=== PATIENT | male | born 1975 | race Caucasian/White ===

== ENCOUNTER 2016-09-28 16:39 | Emergency (ER) | payer OTHER ==
[~2016-09-28] VITALS: Ht 172.7 cm; Wt 119.5 kg
[2016-09-28 16:54] VITALS: BP 141/97; TEMP 36.7; Ht 172.7 cm; Wt 119.5 kg
--- NOTE | 2016-09-28 17:50 | DIAGNOSTIC IMAGING REPORT ---
LEFT THIRD FINGER 3 VIEWS HISTORY: puncture wound from drill left third finger COMPARISON: None. FINDINGS: There is no fracture or dislocation. Soft tissue swelling within the mid aspect of the left middle finger with a small volar density suggesting a soft tissue laceration. IMPRESSION: Soft tissue injury within the left middle finger. No fractures. Electronically signed by: David Perez M.D. 09/28/2016 5:49 PM Dictated Date/Time: 09/28/2016 5:46 PM
--- NOTE | 2016-09-28 17:53 | EMERGENCY ROOM VISIT NOTE ---
ED Visit Note First contact with patient: 17:00 CHIEF COMPLAINT: Puncture wound of the left third finger HISTORY OF PRESENT ILLNESS: This 40-year-old male presents the ER with chief complaint that he drilled into his left third finger with a drill bit. The patient states that it bled a lot but it has stopped. The patient denies any numbness and tingling to the tip of his finger. He states he is able to flex and extend his finger. The patient is right-hand dominant. The patient's tetanus status is unknown. He states that he washed out the wound thoroughly. REVIEW OF SYSTEMS: 6 system review was performed and was negative unless stated otherwise in history of present illness. PMH: The patient is healthy; DVT SOCIAL HISTORY: Patient lives with his . The patient denies tobacco use but admits to occasional alcohol use. PHYSICAL EXAM: Vital Signs: Were reviewed Reviewed Nurse's notes. GENERAL: 40- year-old white male appears in no acute distress. MENTAL Status: Alert and oriented 3. LEFT THIRD FINGER: There is a puncture wound noted on the palmar aspect at the level of the DIP joint, just lateral to midline. There is no active bleeding. The wound looks clean. The patient is able to flex and extend his finger without difficulty. EMERGENCY DEPARTMENT COURSE: The patient was evaluated. It was recommended that the patient get a tetanus booster but the patient declined. X-ray of the left third finger was ordered and interpreted by the radiologist and myself. DIAGNOSTICS:LEFT THIRD FINGER 3 VIEWS HISTORY: puncture wound from drill left third finger COMPARISON: None. FINDINGS: There is no fracture or dislocation. Soft tissue swelling within the mid aspect of the left middle finger with a small volar density suggesting a soft tissue laceration. IMPRESSION: Soft tissue injury within the left middle finger. No fractures. Electronically signed by: David Perez M.D. 09/28/2016 5:49 PM Dictated Date/Time: 09/28/2016 5:46 PM The patient was informed of the findings. There was copiously irrigated with saline. Antibiotic ointment and a bandage was applied. DIAGNOSIS: Puncture wound of left third finger DISCHARGE INSTRUCTIONS: Antibiotic ointment and a bandage for 2 days. Take Keflex as prescribed. If you experience any deep redness around the area or purulent drainage, return to the ER. Current/Historical Medications No Active Prescriptions or Reported Meds Allergies Coded Allergies: No Known Allergies (Unverified , 10/30/15) Vital Signs Date Time Temp Pulse Resp B/P (MAP) Pulse Ox O2 Delivery O2 Flow Rate FiO2 09/28/16 16:54 36.7 77 18 141/97 97 Room Air Departure Information Prescriptions No Active Prescriptions or Reported Meds Referrals No Doctor, Assigned (PCP) Patient Instructions [facility]
[2016-09-28] MEDS ORDERED: CEPH500C2 PO (17:59)
[2016-09-28 18:06] VITALS: PULSE 74; O2SAT 98
== END 2016-09-28 18:08 | disposition home or self-care (01) ==
LOC: C.EDB 16:41 → C.EDD 18:08
DX: S61.233A Puncture wound without foreign body of left middle finger without damage to nail, initial encounter (principal); W45.8XXA Other foreign body or object entering through skin, initial encounter; Z86.718 Personal history of other venous thrombosis and embolism